=== PATIENT | female | born 2000 | race Two or more races ===

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

== ENCOUNTER 2021-02-22 05:04 | Emergency (ER) | payer BC, MEDICAID ==
--- NOTE | 2021-02-22 05:53 | EDM.PDOC ---
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 - Related Data Allergies Allergy/AdvReac Type Severity Reaction Status Date / Time No Known Allergies Allergy Verified 02/22/21 05:17 Home Meds: Home Meds Cetirizine [ZyrTEC] 10 mg PO DAILY 09/03/20 [History] Fluconazole [Diflucan] 150 mg PO ONETIME #1 tab 02/22/21 [Rx] Fluticasone Propionate [Flonase] 1 spray KIRTI DAILY PRN 02/22/21 [History] Past Medical History Respiratory History: Reports: Asthma 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 (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 Below) 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: irregular bleeding Neurological History: Reports: Concussion Psychiatric History: Reports: Anxiety Endocrine/Metabolic History: Reports: Obesity/BMI 30+ - Infectious Disease History Infectious Disease History: Reports: Novel Coronavirus - Past Surgical History HEENT Surgical History: Reports: Adenoidectomy Social & Family History - Family History Family Medical History: No Pertinent Family History - Tobacco Use Tobacco Use Status *Q: Current Every Day Tobacco User Years of Tobacco use: 1 Packs/Tins Daily: 0.1 - Caffeine Use Caffeine Use: Reports: Coffee - Recreational Drug Use Recreational Drug Use: No ED ROS GENERAL - Review of Systems Review Of Systems: See Below Constitutional: Reports: No Symptoms HEENT: Reports: No Symptoms Respiratory: Reports: No Symptoms Cardiovascular: Reports: No Symptoms Endocrine: Reports: No Symptoms GI/Abdominal: Reports: No Symptoms : Reports: Other (vag bleeding) Musculoskeletal: Reports: No Symptoms Skin: Reports: No Symptoms Neurological: Reports: No Symptoms Psychiatric: Reports: No Symptoms Hematologic/Lymphatic: Reports: No Symptoms Immunologic: Reports: No Symptoms ED EXAM, GENERAL - Physical Exam Exam: See Below Exam Limited By: No Limitations General Appearance: Alert, WD/WN, Anxious Ears: Hearing Grossly Normal Throat/Mouth: Normal Voice, No Airway Compromise Respiratory/Chest: No Respiratory Distress Cardiovascular: Regular Rate, Rhythm GI/Abdominal: Soft, Non-Tender Back Exam: Normal Inspection. No: CVA Tenderness (R), CVA Tenderness (L) Extremities: Normal Inspection, Non-Tender, No Pedal Edema Neurological: Alert, Oriented, CN II-XII Intact, Normal Cognition, Normal Gait, No Motor/Sensory Deficits Psychiatric: Normal Affect, Normal Mood Skin Exam: Warm, Dry, Intact, Normal Color, No Rash Lymphatic: No Adenopathy Course - Vital Signs Last Recorded V/S: Last Vital Signs Temp 36.6 C 02/22/21 05:05 Pulse 74 02/22/21 05:05 Resp 18 02/22/21 05:05 BP 138/94 H 02/22/21 05:05 Pulse Ox 99 02/22/21 05:05 - Orders/Labs/Meds Labs: Laboratory Tests 02/22/21 02/22/21 Range/Units 05:30 05:30 Urine Color Yellow (YELLOW) Urine Appearance Slightly cloudy (CLEAR) Urine pH 6.0 (5.0-6.5) Ur Specific [place] 1.025 (1.010-1.025) Urine Protein Trace (NEGATIVE) mg/dL Urine Glucose (UA) Normal (NORMAL) mg/dL Urine Ketones 15 H (NEGATIVE) mg/dL Urine Occult Blood Large H (NEGATIVE) Urine Nitrite Negative (NEGATIVE) Urine Bilirubin Small H (NEGATIVE) Urine Urobilinogen 1 H (NEGATIVE) mg/dL Ur Leukocyte Esterase Moderate H (NEGATIVE) Urine RBC 10-20 H (0-5) Urine WBC 5-10 H (0-5) Ur Squamous Epith Cells Few H (NS,R,O) Urine Bacteria Few H (NS) Urine Mucus Moderate H (NS) Urine Yeast Few H (NS) Urine HCG, Qual Negative (NEGATIVE) - Re-Assessments/Exams Free Text/Narrative Re-Assessment/Exam: 02/22/21 06:29 pt has been using the NuvaRing for several month, LMP December 14-, menses in December 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, 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 who 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 here pt took out NuvaRing on Wednesday, 6d ago, and did not have spotting until today on BCP x 6y, changed to NuvaRing d/t irreg menses, however pt informed that she may have irreg menses separate from the form of BC, which she should discuss further with her PCP she was not going to put in the NuvaRing "until I had my period" altho was informed to continue as Rx'ed until she receives different instructions from her PCP pelvic exam deferred to PCP, pt has never had a pap pt had spotting his AM and heavier bleeding this PM, tampon this evening had a white substance on the end which would not have been products of conception (HCG neg) altho may have been yeast Departure - Departure Time of Disposition: 06:18 Disposition: Home, Self-Care 01 Condition: Good Clinical Impression: Irregular menses, Yeast vaginitis, Mild dehydration - Discharge Information *PRESCRIPTION DRUG MONITORING PROGRAM REVIEWED*: Not Applicable *COPY OF PRESCRIPTION DRUG MONITORING REPORT IN PATIENT NAZ: Not Applicable Prescriptions: Fluconazole [Diflucan] 150 mg PO ONETIME #1 tab Instructions: Vaginal Yeast Infection, Adult, Etonogestrel; Ethinyl Estradiol Vaginal Ring Referrals: PCP,None [Primary Care Provider] - Forms: ED Department Discharge Additional Instructions: Insert a new NuvaRing tomorrow. See your PCP in 2-3 days for further evaluation. For yeast, take fluconazole 150 mg 1 tab today. Sepsis Event Note (ED) - Evaluation Sepsis Screening Result: No Definite Risk - Focused Exam Vital Signs: Vital Signs Temp Pulse Resp BP Pulse Ox 02/22/21 05:05 36.6 C 74 18 138/94 H 99
== END 2021-02-22 06:35 | disposition home or self-care (01) ==
LOC: FB.ED 05:04
DX: B37.3 Candidiasis of vulva and vagina (principal); E86.0 Dehydration; N92.6 Irregular menstruation, unspecified; E66.9 Obesity, unspecified; Z72.0 Tobacco use; Z68.32 Body mass index [BMI] 32.0-32.9, adult
CPT/HCPCS: 81001; 81025; 99283